=== PATIENT | female | born 1940 | race Caucasian/White ===

== ENCOUNTER 2017-09-08 14:03 | Outpatient (CLI) | payer MEDICARE | END 2017-09-08 14:04 | disposition home or self-care (01) | LOC: BICMAMMO 14:03 | PROVIDERS: ATTEND Internal Medicine Rheumatology | DX: M81.0 Age-related osteoporosis without current pathological fracture (principal); M85.89 Other specified disorders of bone density and structure, multiple sites | CPT/HCPCS: 77080 ==

== ENCOUNTER 2019-03-12 11:11 | Outpatient (CLI) | payer MEDICARE ==
--- NOTE | 2019-03-16 14:01 | RAD ---
Modified barium swallow HISTORY: Dysphagia. Feeding difficulties. Pneumonitis due to inhalation. Findings: Exam was performed by speech pathology with multiple consistencies. Video review is availab le and demonstrates good bolus formation and retropulsion. Good initiation of swallowing. No significant penetration or aspiration demonstrated. Early spill of contrast when patient was chewing. Some coughing was seen by the patient, although aspiration was not documented with imaging. A tablet was swallowed without difficulty. Fluoroscopy time 21 seconds. Please see separate detailed report from speech pathology.
== END 2019-03-12 11:12 | disposition home or self-care (01) ==
PROVIDERS: ATTEND Internal Medicine
DX: R13.10 Dysphagia, unspecified (principal)
CPT/HCPCS: 74230

== ENCOUNTER 2019-08-27 11:16 | Outpatient (CLI) | payer MEDICARE ==
--- NOTE | 2019-08-27 12:59 | MMO ---
Bilateral MAMMO Bilat Screen [facility]. CLINICAL HISTORY: Patient is 78 years old and is seen for screening. The patient has the following family history of breast cancer: paternal aunt. The patient has a history of left Mastectomy in 1991 - malignant - Transflap Reconstruction of left.. VIEWS: The views performed were: bilateral craniocaudal with tomosynthesis and bilateral mediolateral oblique with tomosynthesis. FILMS COMPARED: The present examination has been compared to prior imaging studies performed at [facility] on 11/02/2009, 11/09/2010, 01/15/2012 and 01/27/2013. This study has been interpreted with the assistance of computer-aided detection. MAMMOGRAM FINDINGS: There are scattered fibroglandular densities. There are stable benign appearing calcifications seen in both breasts. There are no suspicious masses, suspicious calcifications, or new areas of architectural distortion. IMPRESSION: THERE IS NO MAMMOGRAPHIC EVIDENCE OF MALIGNANCY. A ROUTINE FOLLOW-UP MAMMOGRAM IN 1 YEAR IS RECOMMENDED. THE RESULTS OF THIS EXAM WERE SENT TO THE PATIENT. ACR BI-RADS Category 2 - Benign finding MAMMOGRAPHY NOTE: 1. A negative mammogram report should not delay a biopsy if a dominant of clinically suspicious mass is present. 2. Approximately 10% to 15% of breast cancers are not detected by mammography. 3. Adenosis and dense breasts may obscure an underlying neoplasm. Reported by: ANTHONY KIMBLE MD Electonically Signed: [id number]
== END 2019-08-27 11:17 | disposition home or self-care (01) ==
LOC: BICMAMMO 11:16
PROVIDERS: ATTEND Family Medicine
DX: Z12.31 Encounter for screening mammogram for malignant neoplasm of breast (principal); Z85.3 Personal history of malignant neoplasm of breast; Z80.3 Family history of malignant neoplasm of breast; Z90.12 Acquired absence of left breast and nipple; Z98.890 Other specified postprocedural states
CPT/HCPCS: 77063; 77067

== ENCOUNTER 2019-12-20 14:27 | Outpatient (CLI) | payer MEDICARE ==
--- NOTE | 2019-12-20 15:22 | BD ---
DEXA bone density examination HISTORY: 79-year-old postmenopausal female for screening COMPARISON: None FINDINGS: L1--bone mineral density 0.914 g/sq cm; T score -0.7 L2--bone mineral density 0.985 g/sq cm; T score -0.4 L3--bone mineral density 0.983 g/sq cm; T score -0.9 L4--bone mineral density 1.143 g/sq cm; T score 0.7 Total L1-L4--bone mineral density 1.015 g/sq cm; T score -0.3 Left femoral neck--bone mineral density 0.669 g/sq cm; T score -1.6 Total proximal left femur--bone mineral density 0.871 g/sq cm ; T score -0.6. Right femoral neck--bone mineral density 0.645 g/sq cm; T score -1.8 Total proximal right femur--bone mineral density 0.82 g/sq cm ; T score -1.0 Bone mineral density of the lumbar spine from L1 to L4 on prior study in 2018 was 0.9 g/sq cm corresp onding to a young adult T score of -1.3. The bone mineral density of the left femoral neck on prior exam was 0.635 g/sq cm corresponding to young adult T score of -1.9. IMPRESSION: 1. Mild osteopenia of each femoral neck with normal bone mineralization of the lumbar spine. 2. The 10 year major osteoporotic risk fracture is 21% with 10 year hip fracture risk of 5.0%. The f racture risk has increased when compared to prior study in 2018.
== END 2019-12-20 14:28 | disposition home or self-care (01) ==
LOC: BICMAMMO 14:27
PROVIDERS: ATTEND Internal Medicine Rheumatology
DX: M81.0 Age-related osteoporosis without current pathological fracture (principal); M85.851 Other specified disorders of bone density and structure, right thigh; M85.852 Other specified disorders of bone density and structure, left thigh
CPT/HCPCS: 36415; 77080; 80053; 81003; 81015; 82570; 84156; 85025; 85652; 86140; 86160

== ENCOUNTER 2022-10-02 14:57 | Outpatient (CLI) | payer MEDICARE | END 2022-10-02 14:58 | disposition home or self-care (01) | LOC: BICMAMMO 14:57 | PROVIDERS: ATTEND Internal Medicine Rheumatology | DX: M81.0 Age-related osteoporosis without current pathological fracture (principal); M85.852 Other specified disorders of bone density and structure, left thigh; M85.851 Other specified disorders of bone density and structure, right thigh | CPT/HCPCS: 77080 ==

== ENCOUNTER 2022-12-05 14:36 | Outpatient (CLI) | payer MEDICARE | END 2022-12-05 14:37 | disposition home or self-care (01) | LOC: BICMAMMO 14:36 | PROVIDERS: ATTEND Internal Medicine Rheumatology | DX: M81.0 Age-related osteoporosis without current pathological fracture (principal); M85.88 Other specified disorders of bone density and structure, other site | CPT/HCPCS: 77080 ==

== ENCOUNTER 2025-06-02 15:12 | Outpatient (CLI) | payer MEDICARE | END 2025-06-02 15:13 | disposition home or self-care (01) | LOC: SCSRAD 15:12 | PROVIDERS: ATTEND Family Medicine | DX: K59.00 Constipation, unspecified (principal) | CPT/HCPCS: 74018 ==